=== PATIENT | male | born 1960 | race Caucasian/White ===

== ENCOUNTER → 2016-06-04 | Outpatient (CLI) | payer BC ==
--- NOTE | 2016-06-04 12:04 | XR ---
EXAMINATION TYPE: XR chest 2V DATE OF EXAM: 06/04/2016 11:34 AM COMPARISON: 04/24/16 HISTORY: Shortness of breath TECHNIQUE: Frontal and lateral views of the chest are obtained. FINDINGS: Scattered senescent parenchymal changes noted. Hyperinflation compatible with COPD. No evidence for infiltrate. No evidence for atelectasis. Heart size is stable. Mediastinal structures are stable and grossly unremarkable. No evidence for hilar prominence. Degenerative changes dorsal spine. IMPRESSION: 1. No evidence for acute pulmonary disease.
== END | disposition home or self-care (01) ==
LOC: RADXRMAIN 11:19
PROVIDERS: ATTEND Internal Medicine
DX: R05 Cough (principal); R06.2 Wheezing
CPT/HCPCS: 71020

== ENCOUNTER 2016-10-26 05:47 | Emergency (ER) | payer OTHER ==
[2016-10-26] MEDS ORDERED: KETOROLAC 30 MG/ML 1 ML VIAL IVP STA ×2 (05:55→06:43)
[2016-10-26] MEDS ORDERED: SODIUM CHLORIDE 0.9% 1,000 ML IV STA (05:55)
[2016-10-26] MEDS ORDERED: ONDANSETRON 4 MG/2 ML VIAL IVP STA (05:55)
--- NOTE | 2016-10-26 05:58 | ED ---
Abdominal Pain HPI - General Source: patient, family, RN notes reviewed Mode of arrival: wheelchair Limitations: no limitations - History of Present Illness MD Complaint: abdominal pain, flank pain <Mason Ny - Last Filed: 10/26/16 06:56> <Mason Ahumada - Last Filed: 10/26/16 09:43> - General Chief Complaint: Abdominal Pain Stated Complaint: lower abd pain Time Seen by Provider: 10/26/16 05:53 - History of Present Illness Initial Comments: This is a 56-year-old male with a prior history kidney stones associated with 2 AM this morning of severe sharp right-sided flank pain radiates down toward his penis and testicles. He's had no dysuria no hematuria. He has had diaphoresis with this nausea and vomiting. He also states she's had some bright red blood per rectum. He has no prior history of GI bleeding. No other complaints at this time (Mason Ny) - Related Data Home Medications Medication Instructions Recorded Confirmed traMADol HCL [Ultram] 1 tab PO QID PRN 10/26/16 10/26/16 Previous Rx's Medication Instructions Recorded Hydrocodone/Acetaminophen [[place] 1 - 2 each PO Q4HR PRN #30 tab 10/26/16 5-325] Ibuprofen [Motrin] 800 mg PO Q8H PRN #20 tab 10/26/16 Ondansetron [Zofran ODT] 8 mg PO Q8HR PRN #12 tab 10/26/16 Tamsulosin [Flomax] 0.4 mg PO DAILY #15 cap 10/26/16 Allergies Allergy/AdvReac Type Severity Reaction Status Date / Time No Known Allergies Allergy Verified 10/26/16 07:57 Review of Systems ROS Other: All systems not noted in ROS Statement are negative. <Mason Ny - Last Filed: 10/26/16 06:56> ROS Other: All systems not noted in ROS Statement are negative. <Mason Ahumada - Last Filed: 10/26/16 09:43> ROS Statement: Those systems with pertinent positive or pertinent negative responses have been documented in the HPI. Past Medical History Past Medical History: No Reported History Additional Past Medical History / Comment(s): Kidney stone History of Any Multi-Drug Resistant Organisms: None Reported Past Surgical History: No Surgical Hx Reported Past Psychological History: No Psychological Hx Reported Smoking Status: Never smoker Past Alcohol Use History: Rare Past Drug Use History: None Reported <Mason Ny - Last Filed: 10/26/16 06:56> General Exam Limitations: no limitations General appearance: alert, anxious, in distress Head exam: Present: atraumatic, normocephalic, normal inspection Eye exam: Present: normal appearance, PERRL, EOMI. Absent: scleral icterus, conjunctival injection, periorbital swelling ENT exam: Present: normal exam, mucous membranes moist Neck exam: Present: normal inspection. Absent: tenderness, meningismus, lymphadenopathy Respiratory exam: Present: normal lung sounds bilaterally. Absent: respiratory distress, wheezes, rales, rhonchi, stridor Cardiovascular Exam: Present: regular rate, normal rhythm, normal heart sounds. Absent: systolic murmur, diastolic murmur, rubs, gallop, clicks GI/Abdominal exam: Present: soft, normal bowel sounds. Absent: distended, tenderness, guarding, rebound, rigid Rectal exam: Present: normal inspection, normal rectal tone, heme (-) stool ( Brown stool the Hemoccult is pending no masses palpable prostate within normal limits) Extremities exam: Present: normal inspection, full ROM, normal capillary refill. Absent: tenderness, pedal edema, joint swelling, calf tenderness Back exam: Present: normal inspection, CVA tenderness (R) Neurological exam: Present: alert, oriented X3, CN II-XII intact Psychiatric exam: Present: normal affect, normal mood Skin exam: Present: warm, intact, normal color, diaphoretic. Absent: rash <Mason Ny - Last Filed: 10/26/16 06:56> <Mason Ahumada - Last Filed: 10/26/16 09:43> - General Exam Comments Initial Comments: This is a well-developed well-nourished awake alert oriented 3 male (Mason Ny) Course <Mason Ny - Last Filed: 10/26/16 06:56> <Mason Ahumada - Last Filed: 10/26/16 09:43> Vital Signs 10/26/16 10/26/16 10/26/16 05:50 06:50 07:32 Temperature 97.7 F 97.0 F L 97.4 F L Pulse Rate 55 L 61 49 L Respiratory 18 20 17 Rate Blood Pressure 149/84 156/77 159/79 O2 Sat by Pulse 97 96 98 Oximetry 10/26/16 10/26/16 08:46 09:31 Temperature 97.4 F L 97.4 F L Pulse Rate 61 55 L Respiratory 18 18 Rate Blood Pressure 144/73 124/78 O2 Sat by Pulse 97 95 Oximetry - Reevaluation(s) Reevaluation #1: 10/26/16 06:57 The patient did receive a second dose of pain medications pain did improve down to a 7 or 8/10 in severity patient's care will be endorsed to Dr. Ahumada. Patient is scheduled to have a CT abdomen . Due to the pain presentation is a suspected kidney stone noncontrast CT will be done at this time. 10/26/16 06:59 (Mason Ny) Medical Decision Making - Lab Data Result diagrams: 10/26/16 06:12 10/26/16 06:12 <Mason Ny - Last Filed: 10/26/16 06:56> - Lab Data Result diagrams: 10/26/16 06:12 10/26/16 06:12 <Mason Ahumada - Last Filed: 10/26/16 09:43> - Medical Decision Making The patient was seen and examined. All diagnostics were reviewed. Report was received from previous physician. He does relate that he has had the blood in his stools for the past 2 months. He apparently is scheduled for a colonoscopy towards the end of December. The right flank and groin pain is consistent with his previous kidney stones but he states that his symptoms are worse. He does receive additional medications of Dilaudid but states that this did not relieve his symptoms. He later receives some Reglan as well as morphine. His urine shows evidence of hematuria. His Hemoccult was positive. Remainder of labs were stable. The computed tomography scan showed a 4 mm right ureteral stone with some hydronephrosis. No other acute abnormalities are identified. He is feeling much improved on recheck. It is felt as though he is stable for discharge. He is counseled regarding his diagnoses in detail and leaves in no distress. He does appear that he has some blood in his stool which is been somewhat chronic and he is working with his primary physician for further workup. It is highly recommended that he does obtain the colonoscopy as soon as possible. Return parameters are discussed. (Mason Ahumada) - Lab Data Lab Results 10/26/16 10/26/16 10/26/16 Range/Units 06:12 06:12 06:12 WBC 7.4 (3.8-10.6) k/uL RBC 5.32 (4.30-5.90) m/uL Hgb 15.7 (13.0-17.5) gm/dL Hct 46.5 (39.0-53.0) % MCV 87.5 (80.0-100.0) fL MCH 29.5 (25.0-35.0) pg MCHC 33.8 (31.0-37.0) g/dL RDW 13.1 (11.5-15.5) % Plt Count 180 (150-450) k/uL Neutrophils % 63 % Lymphocytes % 26 % Monocytes % 5 % Eosinophils % 4 % Basophils % 1 % Neutrophils # 4.6 (1.3-7.7) k/uL Lymphocytes # 2.0 (1.0-4.8) k/uL Monocytes # 0.4 (0-1.0) k/uL Eosinophils # 0.3 (0-0.7) k/uL Basophils # 0.0 (0-0.2) k/uL PT 11.2 (9.0-12.0) sec INR 1.1 (<1.1) APTT 22.2 (22.0-30.0) sec Sodium 144 (137-145) mmol/L Potassium 3.8 (3.5-5.1) mmol/L Chloride 111 H (98-107) mmol/L Carbon Dioxide 23 (22-30) mmol/L Anion Gap 10 mmol/L BUN 17 (9-20) mg/dL Creatinine 0.94 (0.66-1.25) mg/dL Est GFR (MDRD) Af Amer >60 (>60 ml/min/1.73 sqM) Est GFR (MDRD) Non-Af >60 (>60 ml/min/1.73 sqM) Glucose 155 H (74-99) mg/dL Calcium 10.6 H (8.4-10.2) mg/dL Total Bilirubin 0.9 (0.2-1.3) mg/dL AST 29 (17-59) U/L ALT 45 (21-72) U/L Alkaline Phosphatase 74 (38-126) U/L Total Protein 6.9 (6.3-8.2) g/dL Albumin 4.2 (3.5-5.0) g/dL Amylase 81 (30-110) U/L Lipase 72 (23-300) U/L Urine Color Urine Appearance (Clear) Urine pH (5.0-8.0) Ur Specific [place] (1.001-1.035) Urine Protein (Negative) Urine Glucose (UA) (Negative) Urine Ketones (Negative) Urine Blood (Negative) Urine Nitrite (Negative) Urine Bilirubin (Negative) Urine Urobilinogen (<2.0) mg/dL Ur Leukocyte Esterase (Negative) Urine RBC (0-5) /hpf Urine WBC (0-5) /hpf Urine Mucus (None) /hpf Stool Occult Blood (Negative) 10/26/16 10/26/16 Range/Units 06:40 06:53 WBC (3.8-10.6) k/uL RBC (4.30-5.90) m/uL Hgb (13.0-17.5) gm/dL Hct (39.0-53.0) % MCV (80.0-100.0) fL MCH (25.0-35.0) pg MCHC (31.0-37.0) g/dL RDW (11.5-15.5) % Plt Count (150-450) k/uL Neutrophils % % Lymphocytes % % Monocytes % % Eosinophils % % Basophils % % Neutrophils # (1.3-7.7) k/uL Lymphocytes # (1.0-4.8) k/uL Monocytes # (0-1.0) k/uL Eosinophils # (0-0.7) k/uL Basophils # (0-0.2) k/uL PT (9.0-12.0) sec INR (<1.1) APTT (22.0-30.0) sec Sodium (137-145) mmol/L Potassium (3.5-5.1) mmol/L Chloride (98-107) mmol/L Carbon Dioxide (22-30) mmol/L Anion Gap mmol/L BUN (9-20) mg/dL Creatinine (0.66-1.25) mg/dL Est GFR (MDRD) Af Amer (>60 ml/min/1.73 sqM) Est GFR (MDRD) Non-Af (>60 ml/min/1.73 sqM) Glucose (74-99) mg/dL Calcium (8.4-10.2) mg/dL Total Bilirubin (0.2-1.3) mg/dL AST (17-59) U/L ALT (21-72) U/L Alkaline Phosphatase (38-126) U/L Total Protein (6.3-8.2) g/dL Albumin (3.5-5.0) g/dL Amylase (30-110) U/L Lipase (23-300) U/L Urine Color Yellow Urine Appearance Clear (Clear) Urine pH 5.5 (5.0-8.0) Ur Specific [place] 1.018 (1.001-1.035) Urine Protein 1+ H (Negative) Urine Glucose (UA) Negative (Negative) Urine Ketones Negative (Negative) Urine Blood Moderate H (Negative) Urine Nitrite Negative (Negative) Urine Bilirubin Negative (Negative) Urine Urobilinogen <2.0 (<2.0) mg/dL Ur Leukocyte Esterase Negative (Negative) Urine RBC 42 H (0-5) /hpf Urine WBC 4 (0-5) /hpf Urine Mucus Rare H (None) /hpf Stool Occult Blood Positive (Negative) Disposition <Mason Ny - Last Filed: 10/26/16 06:56> Time of Disposition: 09:39 <Mason Ahumada - Last Filed: 10/26/16 09:43> Clinical Impression: Right flank pain, Nausea and vomiting, Hypertension, Hematuria, Rectal bleeding , Right ureteral stone, Hydronephrosis of right kidney Disposition: HOME SELF-CARE Condition: Good Instructions: Hypertension (ED), Kidney Stones (ED), Rectal Bleeding (ED) Additional Instructions: Please stop your home Ultram while taking the [place]. Prescriptions: Hydrocodone/Acetaminophen [[place] 5-325] 1 - 2 each PO Q4HR PRN #30 tab PRN Reason: Pain Ibuprofen [Motrin] 800 mg PO Q8H PRN #20 tab PRN Reason: Pain Ondansetron [Zofran ODT] 8 mg PO Q8HR PRN #12 tab PRN Reason: Nausea Tamsulosin [Flomax] 0.4 mg PO DAILY #15 cap Referrals: Reese Gordon MD [Primary Care Provider] - 1-2 days Gio Martinez MD [STAFF PHYSICIAN] - 10/30/16
[2016-10-26 06:37] LABS: Basophils % (A) 1 %; CH 30.5; CHCM 35.1; Eosinophils # (A) 0.3 k/uL (0-0.7); Eosinophils % (A) 4 %; HCT 46.5 % (39.0-53.0); HDW 2.84; HGB 15.7 gm/dL (13.0-17.5); Luc # (Auto) 0.17; Luc % (Auto) 2; Lymphocytes % (A) 26 %; MCH 29.5 pg (25.0-35.0); MCHC 33.8 g/dL (31.0-37.0); MCV 87.5 fL (80.0-100.0); Mean Platelet Volume 6.8; Monocytes # (A) 0.4 k/uL (0-1.0); Monocytes % (A) 5 %; Neutrophils # (A) 4.6 k/uL (1.3-7.7); Neutrophils % (A) 63 %; RBC 5.32 m/uL (4.30-5.90); RDW 13.1 % (11.5-15.5); WBC 7.4 k/uL (3.8-10.6); WBC (Perox) 6.86
[2016-10-26 06:46] LABS: INR 1.1 (<1.1); Partial Thromboplastin Time 22.2 sec (22.0-30.0); Prothrombin Time 11.2 sec (9.0-12.0)
[2016-10-26 06:47] LABS: ALT 45 U/L (21-72); AST 29 U/L (17-59); Alkaline Phosphatase 74 U/L (38-126); Amylase 81 U/L (30-110); Anion Gap 10 mmol/L; Blood Urea Nitrogen 17 mg/dL (9-20); Calcium 10.6 mg/dL (8.4-10.2); Carbon Dioxide 23 mmol/L (22-30); Chloride 111 mmol/L (98-107); Glucose 155 mg/dL (74-99); Non-African American GFR(MDRD) >60 (>60 ml/min/1.73 sqM); Potassium 3.8 mmol/L (3.5-5.1); Sodium 144 mmol/L (137-145); Total Bilirubin 0.9 mg/dL (0.2-1.3); Total Protein 6.9 g/dL (6.3-8.2)
[2016-10-26 06:59] LABS: Appearance,Urine Clear (Clear); Bilirubin,Urine Negative (Negative); Glucose,Urine (UA) Negative (Negative); Ketones,Urine Negative (Negative); Leukocyte Esterase,Urine Negative (Negative); Mucus,Urine Rare /hpf; Nitrite,Urine Negative (Negative); PH, Urine 5.5 (5.0-8.0); Particle Count 3546; Protein,Urine 1+ (Negative); RBC,Urine 42 /hpf (0-5); Specific Gravity,Urine 1.018 (1.001-1.035); UA Billing (MACRO vs. MICRO) MICRO; Urobilinogen,Urine <2.0 mg/dL (<2.0); WBC,Urine 4 /hpf (0-5)
[2016-10-26] MEDS ORDERED: HYDROmorphone 1 MG/ML 1 ML SYRINGE IVP STA (07:36)
--- NOTE | 2016-10-26 07:55 | XR ---
EXAM: XR Abdomen, 2 View CLINICAL HISTORY: Reason: abdominal pain TECHNIQUE: Frontal upright view of the abdomen/pelvis. COMPARISON: 10/08/15 FINDINGS: Intraperitoneal space: No free air. Gastrointestinal tract: Overall paucity of small bowel gas. No focal small bowel dilatation. Organs: Stable calcification in the left pelvis likely phlebolith. Bones/joints: Mild degenerative changes in the lower lumbar spine. Tubes, lines and devices: Overlying chest leads obscure a portion of the upper abdomen. IMPRESSION: 1. Nonspecific bowel gas pattern. 2. No free air.
[2016-10-26] MEDS ORDERED: METOCLOPRAMIDE 5 MG/ML 2 ML VIAL IVP STA (08:22)
[2016-10-26] MEDS ORDERED: MORPHINE SULFATE 4 MG/ML SYRINGE IV STA (08:22)
[2016-10-26 08:47] VITALS: RESP 18
--- NOTE | 2016-10-26 09:29 | CT ---
EXAMINATION TYPE: CT abdomen pelvis wo con DATE OF EXAM: 10/26/2016 COMPARISON: October 14, 2015. HISTORY: RLQ abdominal pain, bloody bowel movement. CT DLP: 864.70 mGycm Automated exposure control for dose reduction was used. TECHNIQUE: Helical acquisition of images was performed from the lung bases through the pelvis. Witho ut the use of contrast. FINDINGS: LUNG BASES: No significant abnormality is appreciated. Lack of intravenous contrast limits evaluation of abdominal and pelvic organs. LIVER/GB: No significant abnormality is appreciated. PANCREAS: No significant abnormality is seen. SPLEEN: No significant abnormality is seen. ADRENALS: No significant abnormality is seen. KIDNEYS: The left kidney is unchanged. A dromedary hump is again noted. The right kidney demonstrates [id number] hydronephrosis. There is nonspecific. Renal infiltrati on of the fat. In the proximal ureter there is a 4 mm calculus which causes obstruction. Small hiatal hernia is noted. Diastases rectus is noted. FREE AIR: No free air is visualized RETROPERITONEAL ADENOPATHY: None visualized REPRODUCTIVE ORGANS: Prostatic calcifications are again noted. There appear to be bilateral fat fille d inguinal hernias. URINARY BLADDER: No significant abnormality is seen. PELVIC ADENOPATHY: None visualized. OSSEOUS STRUCTURES: Are unchanged. BOWEL: Mild diverticulosis is again noted. No findings are identified which would suggest acute dive rticulitis. IMPRESSION: 4 MM OBSTRUCTING CALCULUS IN THE PROXIMAL RIGHT URETER WHICH CAUSES MILD TO MODERATE HYDRONEPHROSIS.
[2016-10-26 10:05] VITALS: BP 129/82; PULSE 58; TEMP 97
== END 2016-10-26 10:05 | disposition home or self-care (01) ==
LOC: EC 05:47
DX: N13.2 Hydronephrosis with renal and ureteral calculous obstruction (principal); R11.2 Nausea with vomiting, unspecified; K62.5 Hemorrhage of anus and rectum; I10 Essential (primary) hypertension
CPT/HCPCS: 99285; 96374; 96375 ×4; 96376; 96361; 36415; 80053; 82150; 83690; 85025; 85610; 85730; 82272; 81001; 74000; 74176; J2270; J2765; J2405; J1885; J1170

== ENCOUNTER → 2017-06-05 | Outpatient (CLI) | payer OTHER ==
--- NOTE | 2017-06-05 15:45 | US ---
EXAMINATION TYPE: US thyroid st tissue head/neck DATE OF EXAM: 06/05/2017 COMPARISON: NONE CLINICAL HISTORY: E21.3 Hyperparathyroidism. High calcium levels GLAND SIZE: Right Lobe: 3.7 x 1.5 x 1.7 cm Overall Parenchyma: homogenous Left Lobe: 3.9 x 1.2 x 1.3 cm Overall Parenchyma: homogeneous Isthmus Thickness: 0.2 cm NODULES RIGHT: # of nodules measured on right: 0 LEFT: # of nodules measured on left: 0 ISTHMUS: # of nodules measured in the isthmus: 0 0 Bilateral neck scanned showed enlarged nodes. Largest on the right = 1.9cm, largest two on the left = 2.2 and 2.0cm Hypoechoic, vascular area seen inferior to right thyroid gland, probable parathyroid = 1.2cm, no visi ble parathyroid tissue seen on the left. Thyroid gland is somewhat small in size but fairly homogeneous in appearance. There are suspicious no dule along the inferior posterior aspect of right thyroid difficult to determine if within normal adj acent to thyroid causing mass effect on images saved. Technologist scott several elongated lymph node s bilaterally all measuring subcentimeter in short axis in the middle of the study. IMPRESSION: Possible right-sided parathyroid adenoma. Advise nuclear medicine parathyroid correlation.
== END | disposition home or self-care (01) ==
LOC: RADUSMAIN 10:37
PROVIDERS: ATTEND Surgery
DX: E21.3 Hyperparathyroidism, unspecified (principal)
CPT/HCPCS: 36415; 76536; 82306

== ENCOUNTER → 2017-06-10 | Outpatient (CLI) | payer OTHER ==
--- NOTE | 2017-06-10 16:57 | NM ---
EXAMINATION TYPE: NM parathyroid w/spect DATE OF EXAM: 06/10/2017 COMPARISON: Ultrasound 06/05/2017 HISTORY: Hyperparathyroidism TECHNIQUE: Following administration of 25.1 mCi Tc99m Sestamibi. Anterior projection images of the neck and ches t were obtained 10 minutes and 3 hours post injection. SPECT images of the neck and chest were obtai gayatri and reconstructed in three axes. FINDINGS: Thyroid tracer washout: Delayed images demonstrate near-complete tracer washout from the thyroid. Parathyroid uptake: On the delayed images there is focal increased radiotracer accumulation overlying the lower pole of the right thyroid lobe felt to reflect parathyroid adenoma. Normal uptake: There is physiological tracer uptake in the myocardium, liver, salivary glands, and th yroid gland. IMPRESSION: 1. Findings felt to reflect parathyroid adenoma overlying the lower pole of the right thyroid lobe.
== END | disposition home or self-care (01) ==
LOC: RADNMMAIN 11:46
PROVIDERS: ATTEND Surgery
DX: E21.3 Hyperparathyroidism, unspecified (principal)
CPT/HCPCS: 78071; A9500

== ENCOUNTER 2017-07-10 10:19 | Day surgery (SDC) | payer OTHER ==
[2017-07-08 11:11] VITALS: BMI 31.4
[~2017-07-10 10:19] MED LIST: LACTATED RINGERS 1,000 ML IV SCH
[2017-07-10 10:56] VITALS: TEMP 97.6
[2017-07-10] MEDS ORDERED: LIDOCAINE 1% INJ 10MG/ML (20 ML MDV) ONE (11:06)
[2017-07-10] MEDS ORDERED: PROPOFOL 10 MG/ML 20 ML VIAL IV ONE (11:06)
--- NOTE | 2017-07-10 11:30 | P.PCN ---
Date of Procedure: 07/10/17 Procedure(s) Performed: PREOPERATIVE DIAGNOSIS: colon polyps, GERD POSTOPERATIVE DIAGNOSIS: gastritis, moderate sized hiatal hernia, diverticulosis PROCEDURE: 1. EGD with biopsy 2. Colonoscopy ANESTHESIA: MAC SURGEON: Wm Pabon M.D. SPECIMENS: antrum, body of stomach ENDOSCOPIC PROCEDURE: The patient was on the endoscopy table in the left decubitus position. The Olympus gastroscope was inserted into the oropharynx and passed under direct visualization to the region of the third portion of the duodenum. From that point the scope was slowly withdrawn inspecting all surfaces carefully. There were no neoplastic inflammatory or polypoid lesions throughout the duodenum. The pylorus was widely patent. The stomach was carefully inspected. There was gastritis present diffusely.. A biopsy of the antrum took place to rule out H. pylori. a biopsy of the body of the stomach also took place. Retroflexion revealed a moderate sized hiatal hernia. The GE junction was present at 39 cm while the diaphragmatic hiatus was present at 44 cm. The esophagus was examined and appeared normal. The patient was kept on the endoscopy table in the left decubitus position. The Olympus colonoscope was inserted into the anus and passed under direct visualization to the base of the cecum. The appendiceal orifice was visualized. From that point the scope was slowly withdrawn inspecting all surfaces carefully. There were no neoplastic inflammatory or polypoid lesions throughout the cecum, ascending, transverse, descending, sigmoid and rectum. There was mild sigmoid diverticulosis noted. Digital rectal examination was normal. The patient was taken to the recovery room in stable condition per anesthesia guidelines. RECOMMENDATIONS: await biopsy results. Continue high-fiber diet. Consider follow-up colonoscopy 5 years given the patient's personal history of colon polyps.
[2017-07-10 11:58] VITALS: BP 127/83; PULSE 78; RESP 18
== END 2017-07-10 12:10 | disposition home or self-care (01) ==
LOC: ORWHC2ENDO 10:19
PROVIDERS: ATTEND Surgery
DX: K29.50 Unspecified chronic gastritis without bleeding (principal); K44.9 Diaphragmatic hernia without obstruction or gangrene; K57.30 Diverticulosis of large intestine without perforation or abscess without bleeding; K21.9 Gastro-esophageal reflux disease without esophagitis; Z87.19 Personal history of other diseases of the digestive system; Z86.010 Personal history of colon polyps; E21.3 Hyperparathyroidism, unspecified; Z79.1 Long term (current) use of non-steroidal anti-inflammatories (NSAID); Z79.891 Long term (current) use of opiate analgesic; Z79.899 Other long term (current) drug therapy
CPT/HCPCS: 88305; 45378; 43239; J2001; J2704

== ENCOUNTER → 2017-10-04 | Outpatient (CLI) | payer OTHER ==
--- NOTE | 2017-10-04 19:50 | MR ---
EXAMINATION TYPE: MR shoulder RT wo con DATE OF EXAM: 10/04/2017 COMPARISON: NONE HISTORY: Rt shoulder pain for 2 months per patient. Rotator cuff tear per order. TECHNIQUE: Multiplanar, multisequence imaging of the right shoulder is performed without contrast. FINDINGS: Rotator Cuff: Supraspinatus and infraspinatus tendons are both intact to humeral head attachment. Hans e fluid signal subdeltoid/subacromial bursa is present with mild fraying along the bursal surface. Ro tator cuff muscle bulk is preserved. Subscapularis tendon is intact. Acromioclavicular Joint: AC joint shows some narrowing with capsular hypertrophy superiorly. Underlyi ng fat plane is maintained. Distal acromion morphology shows tiny lateral spur paracoronal image 14. No significant inferior spurring is seen. Glenohumeral Joint: There is joint space loss most prominent mid glenoid level with small to moderate glenohumeral joint effusion. No significant spurring is seen. Labrum: The labrum appears grossly intact given limitation of non-arthrogram study. Biceps Tendon: The long head of biceps is in normal location within bicipital groove. Slightly more p rominent fluid signal surrounds long head of biceps tendon. Bone marrow signal: No focal abnormal marrow signal is appreciated. Other: No additional significant abnormality is appreciated. IMPRESSION: 1. Moderate subdeltoid/subacromial bursitis with bursal tendinosis/tendinopathy. No full-thickness ro tator cuff tear. No labral tear is seen. 2. Mild bicipital tenosynovitis.
== END ==
LOC: RADMRIMAIN 18:42
PROVIDERS: ATTEND Orthopaedic Surgery
DX: M75.51 Bursitis of right shoulder (principal); M75.21 Bicipital tendinitis, right shoulder

== ENCOUNTER → 2022-03-09 | Outpatient (CLI) | payer BC ==
--- NOTE | 2022-03-09 10:25 | CA ---
Stress Echo Report Tereso Alvarez Age: 61 Gender: M : 1960 Exam Date: 03/09/2022 09:22 Exam Location: [facility] Ht (in): 71 Wt (lb): 225 Ordering Physician: Clay Landin MD Referring Physician: Mushtaq HOLT Shingle Catcher: BLAYNE Technologist Procedure CPT: Indication: R07.9 CHEST PAIN ICD-9 Codes: Rhythm: Patient History: CHEST PAIN, NUMBNESS IN ARM Cardiac Medications: IBUPROFEN,,,,, Medications in past 24 hours: Contrast: Stress Results Protocol: Stevenson Total dose(mL): Exercise Duration (min:sec): Max ST Depression (mm): Angina Score: Lara Score: METS: 12.1 Resting HR: 74 Resting BP: 136 / 92 Peak HR: 148 Peak BP: 219 / 57 Max Predicted HR: 160 93 % Max Predicted HR Target HR: 136 Double Product: [id number] Stress Summary: BP Response: Reason for Termination: MAX EXERTION/TARGET HR Cardiac Symptoms: NO SYMPTOMS ECG Analysis Resting ECG: Normal sinus rhythm normal axis normal intervals Stress ECG: Excellent exercise tolerance No ST segment depression Arrhythmia: Echo Analysis Resting Echo: Normal left ventricular size wall motion systolic function Peak Echo Analysis: Normal hyperdynamic response of all segments of myocardium noted MEASUREMENTS (Male/Female) Normal Values CONCLUSIONS Excellent exercise tolerance Negative stress test by EKG criteria Negative stress echo Dr. Thaddeus Cat MD (Electronically Signed) Final Date: 09 March 2022 10:24
== END | disposition home or self-care (01) ==
LOC: RADNMMAIN 09:01
PROVIDERS: ATTEND Family Medicine
DX: R07.9 Chest pain, unspecified (principal)
CPT/HCPCS: 93351

== ENCOUNTER 2023-11-18 18:40 | Emergency (ER) | payer BC ==
[2023-11-18 19:12] VITALS: TEMP 98.5
--- NOTE | 2023-11-18 19:13 | ED ---
General Adult HPI - General Chief complaint: Shortness of Breath Stated complaint: PEE, throat pain Time Seen by Provider: 11/18/23 19:12 Source: patient, family Mode of arrival: ambulatory Limitations: no limitations - History of Present Illness Initial comments: 63-year-old male presenting with chief complaint of difficulty swallowing. Patient states that this started last night while eating turkey. He states that he feels food gets stuck in his chest. When he tries to drink it immediately regurgitates. Denies any difficulty breathing. Has had a previous upper and lower GI scope with Dr. Pabon. - Related Data Home Medications Medication Instructions Recorded Confirmed Acetaminophen Tab [Tylenol Tab] 650 mg PO Q4H PRN 07/08/17 07/10/17 Allergies Allergy/AdvReac Type Severity Reaction Status Date / Time No Known Allergies Allergy Verified 01/29/22 13:33 Review of Systems ROS Statement: Those systems with pertinent positive or pertinent negative responses have been documented in the HPI. ROS Other: All systems not noted in ROS Statement are negative. Past Medical History Past Medical History: No Reported History Additional Past Medical History / Comment(s): Kidney stone History of Any Multi-Drug Resistant Organisms: None Reported Past Surgical History: No Surgical Hx Reported Additional Past Surgical History / Comment(s): parathyroid removal Past Anesthesia/Blood Transfusion Reactions: No Reported Reaction Past Psychological History: No Psychological Hx Reported Past Alcohol Use History: Rare Past Drug Use History: None Reported - Past Family History Mother Family Medical History: Cancer Brother(s) Family Medical History: Cancer Additional Family Medical History / Comment(s): MELENOMA General Exam - General Exam Comments Initial Comments: Visual Physical Exam Vital signs reviewed General: Well-appearing, nontoxic, no acute distress. Head: Normocephalic, atraumatic Eyes: PERRLA, EOMI ENT: Airway patent Chest: Nonlabored breathing Skin: No visual rash, normal skin tone Neuro: Alert and oriented 3 Musculoskeletal: No gross abnormalities Limitations: no limitations General appearance: alert, in no apparent distress Head exam: Present: atraumatic, normocephalic Eye exam: Present: normal appearance, EOMI Neck exam: Present: normal inspection. Absent: meningismus Respiratory exam: Absent: respiratory distress Cardiovascular Exam: Present: regular rate Neurological exam: Present: alert, oriented X3 Psychiatric exam: Present: normal affect, normal mood Skin exam: Present: warm, dry Course Vital Signs 11/18/23 11/18/23 11/19/23 19:07 23:29 00:48 Temperature 98.5 F Pulse Rate 65 53 L 57 L Respiratory 65 H 18 18 Rate Blood Pressure 110/65 138/98 137/89 O2 Sat by Pulse 98 97 97 Oximetry Medical Decision Making - Medical Decision Making I performed the quick note portion of this visit, electronically signed Israel Goins PA-C Was pt. sent in by a medical professional or institution (NURA Taylor, PRODUCT MARKETING ANALYST, urgent care, hospital, or skilled nursing...) When possible be specific @ -No Did you speak to anyone other than the patient for history (EMS, parent, family, police, friend...)? What history was obtained from this source @ -No Did you review nursing and triage notes (agree or disagree)? Why? @ -I reviewed and agree with nursing and triage notes Were old charts reviewed (outside hosp., previous admission, EMS record, old EKG, old radiological studies, urgent care reports/EKG's, skilled nursing records)? Report findings @ -No old charts were reviewed Differential Diagnosis (chest pain, altered mental status, abdominal pain women, abdominal pain men, vaginal bleeding, weakness, fever, dyspnea, syncope, headache, dizziness, GI bleed, back pain, seizure, CVA, palpatations, mental health, musculoskeletal)? @ -Differential includes esophageal foreign body, esophageal stricture, ACS, this is not an all-inclusive list EKG interpreted by me (3pts min.). @ -EKG shows sinus rhythm with frequent ventricular premature complexes. Ventricular rate 68. VT interval 140. QRS 104. QT 388. QTc 405. X-rays interpreted by me (1pt min.). @ -X-ray shows some central peribronchial cuffing may be seen with bronchitis or asthma. Otherwise no acute process seen CT interpreted by me (1pt min.). @ -None done U/S interpreted by me (1pt. min.). @ -None done What testing was considered but not performed or refused? (CT, X-rays, U/S, labs)? Why? @ -None What meds were considered but not given or refused? Why? @ -None Did you discuss the management of the patient with other professionals (professionals i.e. , NURA, PRODUCT MARKETING ANALYST, lab, RT, psych nurse, director social, queen producer, teacher, security control room officer, rn case management)? Give summary @ -No Was smoking cessation discussed for >3mins.? @ -No Was critical care preformed (if so, how long)? @ -No Were there social determinants of health that impacted care today? How? (Homelessness, low income, unemployed, alcoholism, drug addiction, transportation, low edu. Level, literacy, decrease access to med. care, long term, rehab)? @ -No Was there de-escalation of care discussed even if they declined (Discuss DNR or withdrawal of care, Hospice)? DNR status @ -No What co-morbidities impacted this encounter? (DM, HTN, Smoking, COPD, CAD, Cancer, CVA, ARF, Chemo, Hep., AIDS, mental health diagnosis, sleep apnea, morbid obesity)? @ -None Was patient admitted / discharged? Hospital course, mention meds given and route, prescriptions, significant lab abnormalities, going to OR and other pertinent info. @ -63-year-old male presenting with chief complaint of food stuck in his throat since last night. Workup was initiated by triage. Lab work requires no action. Chest x-ray shows no acute process. EKG shows sinus rhythm. Patient is later brought back to a room he is given glucagon and Valium as well as yelena natty. He is instructed to jump up and down. After combination of these methods he feels the food dislodged. He is able to drink without difficulty and feels 100% better. He will follow-up with his PCP at scheduled appointment tomorrow. Discharged home. Follow-up with PCP. Report back to ER with any new or worsening symptoms. Discussed return parameters and answered all questions. Nura coronado conveyed verbal understanding and agreed to the plan. I discussed this case in detail with my attending Dr. Muir Undiagnosed new problem with uncertain prognosis? @ -No Drug Therapy requiring intensive monitoring for toxicity (Heparin, Nitro, Insulin, Cardizem)? @ -No Were any procedures done? @ -No Diagnosis/symptom? @ -Esophageal foreign body Acute, or Chronic, or Acute on Chronic? @ -Acute Uncomplicated (without systemic symptoms) or Complicated (systemic symptoms)? @ -Uncomplicated Side effects of treatment? @ -No Exacerbation, Progression, or Severe Exacerbation? @ -No Poses a threat to life or bodily function? How? (Chest pain, [place], [place], pneumonia, PE, COPD, DKA, ARF, appy, cholecystitis, CVA, Diverticulitis, Homicidal, Suicidal, threat to staff... and all critical care pts) @ -Unlikely at this time - Lab Data Result diagrams: 11/18/23 19:18 11/18/23 19:18 Lab Results 11/18/23 11/18/23 11/18/23 Range/Units 19:18 19:18 19:18 WBC 8.0 (3.8-10.6) k/uL RBC 5.06 (4.30-5.90) m/uL Hgb 15.0 (13.0-17.5) gm/dL Hct 45.4 (39.0-53.0) % MCV 89.6 (80.0-100.0) fL MCH 29.7 (25.0-35.0) pg MCHC 33.1 (31.0-37.0) g/dL RDW 13.0 (11.5-15.5) % Plt Count 178 (150-450) k/uL MPV 8.2 Neutrophils % 60 % Lymphocytes % 28 % Monocytes % 6 % Eosinophils % 3 % Basophils % 1 % Neutrophils # 4.9 (1.3-7.7) k/uL Lymphocytes # 2.2 (1.0-4.8) k/uL Monocytes # 0.5 (0-1.0) k/uL Eosinophils # 0.2 (0-0.7) k/uL Basophils # 0.1 (0-0.2) k/uL PT 11.5 (10.0-12.5) sec INR 1.1 (<1.2) APTT 24.6 (22.0-30.0) sec Sodium 144 (137-145) mmol/L Potassium 3.8 (3.5-5.1) mmol/L Chloride 114 H (98-107) mmol/L Carbon Dioxide 23 (22-30) mmol/L Anion Gap 7 mmol/L BUN 21 H (9-20) mg/dL Creatinine 0.79 (0.66-1.25) mg/dL Est GFR (CKD-EPI)AfAm >90 (>60 ml/min/1.73 sqM) Est GFR (CKD-EPI)NonAf >90 (>60 ml/min/1.73 sqM) Glucose 96 (74-99) mg/dL Calcium 9.3 (8.4-10.2) mg/dL Total Bilirubin 1.2 (0.2-1.3) mg/dL AST 30 (17-59) U/L ALT 24 (4-49) U/L Alkaline Phosphatase 59 (38-126) U/L Troponin I (0.000-0.034) ng/mL Total Protein 6.8 (6.3-8.2) g/dL Albumin 4.3 (3.5-5.0) g/dL 11/18/23 Range/Units 19:18 WBC (3.8-10.6) k/uL RBC (4.30-5.90) m/uL Hgb (13.0-17.5) gm/dL Hct (39.0-53.0) % MCV (80.0-100.0) fL MCH (25.0-35.0) pg MCHC (31.0-37.0) g/dL RDW (11.5-15.5) % Plt Count (150-450) k/uL MPV Neutrophils % % Lymphocytes % % Monocytes % % Eosinophils % % Basophils % % Neutrophils # (1.3-7.7) k/uL Lymphocytes # (1.0-4.8) k/uL Monocytes # (0-1.0) k/uL Eosinophils # (0-0.7) k/uL Basophils # (0-0.2) k/uL PT (10.0-12.5) sec INR (<1.2) APTT (22.0-30.0) sec Sodium (137-145) mmol/L Potassium (3.5-5.1) mmol/L Chloride (98-107) mmol/L Carbon Dioxide (22-30) mmol/L Anion Gap mmol/L BUN (9-20) mg/dL Creatinine (0.66-1.25) mg/dL Est GFR (CKD-EPI)AfAm (>60 ml/min/1.73 sqM) Est GFR (CKD-EPI)NonAf (>60 ml/min/1.73 sqM) Glucose (74-99) mg/dL Calcium (8.4-10.2) mg/dL Total Bilirubin (0.2-1.3) mg/dL AST (17-59) U/L ALT (4-49) U/L Alkaline Phosphatase (38-126) U/L Troponin I <0.012 (0.000-0.034) ng/mL Total Protein (6.3-8.2) g/dL Albumin (3.5-5.0) g/dL Disposition Clinical Impression: Esophageal foreign body Disposition: HOME SELF-CARE Condition: Good Instructions (If sedation given, give patient instructions): Food Impaction (ED) Additional Instructions: Follow-up with your PCP. Report back to ER with any new or worsening symptoms. Is patient prescribed a controlled substance at d/c from ED?: No Referrals: Clay Landin MD [Primary Care Provider] - 1-2 days Time of Disposition: 00:19
[2023-11-18 19:35] LABS: Basophils # (A) 0.1 k/uL (0-0.2); Basophils % (A) 1 %; Eosinophils # (A) 0.2 k/uL (0-0.7); Eosinophils % (A) 3 %; HCT 45.4 % (39.0-53.0); Lymphocytes # (A) 2.2 k/uL (1.0-4.8); Lymphocytes % (A) 28 %; MCH 29.7 pg (25.0-35.0); MCHC 33.1 g/dL (31.0-37.0); MCV 89.6 fL (80.0-100.0); Mean Platelet Volume 8.2; Monocytes # (A) 0.5 k/uL (0-1.0); Monocytes % (A) 6 %; Neutrophils # (A) 4.9 k/uL (1.3-7.7); Neutrophils % (A) 60 %; Platelet Count 178 k/uL (150-450); RBC 5.06 m/uL (4.30-5.90)
[2023-11-18 19:46] LABS: INR 1.1 (<1.2); Partial Thromboplastin Time 24.6 sec (22.0-30.0); Prothrombin Time 11.5 sec (10.0-12.5)
[2023-11-18 19:47] LABS: ALT 24 U/L (4-49); AST 30 U/L (17-59); African American GFR (CKD) >90 (>60 ml/min/1.73 sqM); Albumin 4.3 g/dL (3.5-5.0); Alkaline Phosphatase 59 U/L (38-126); Anion Gap 7 mmol/L; Blood Urea Nitrogen 21 mg/dL (9-20); Calcium 9.3 mg/dL (8.4-10.2); Carbon Dioxide 23 mmol/L (22-30); Chloride 114 mmol/L (98-107); Glucose 96 mg/dL (74-99); Non-African American GFR(CKD) >90 (>60 ml/min/1.73 sqM); Potassium 3.8 mmol/L (3.5-5.1); Sodium 144 mmol/L (137-145); Total Bilirubin 1.2 mg/dL (0.2-1.3); Total Protein 6.8 g/dL (6.3-8.2)
--- NOTE | 2023-11-18 20:33 | XR ---
EXAMINATION TYPE: XR chest 2V DATE OF EXAM: 11/18/2023 COMPARISON: 06/04/2016 HISTORY: 63 year-old male shortness of breath, difficulty breathing TECHNIQUE: PA and lateral views FINDINGS: Heart normal size. Aorta and pulmonary vasculature within normal limits. Mild central peribronchial c uffing noted without consolidation or effusion. IMPRESSION: Some central peribronchial cuffing may be seen with bronchitis or asthma. Otherwise, no acute process seen.
[2023-11-18 23:30] VITALS: RESP 18
[2023-11-18] MEDS: GLUCAGON 1 MG/ML VIAL IM STA (23:38)
[2023-11-18] MEDS: GLUCAGON 1 MG/ML VIAL IVP STA (23:44)
[2023-11-19 00:49] VITALS: BP 137/89; PULSE 57
== END 2023-11-19 00:48 | disposition home or self-care (01) ==
LOC: EC 18:40
DX: T18.108A Unspecified foreign body in esophagus causing other injury, initial encounter (principal)
CPT/HCPCS: 36415; 93005; 80053; 84484; 85025; 85610; 85730; 71046; 99285; 96374; 96375; J1610; J3360

== ENCOUNTER 2024-02-11 07:31 | Day surgery (SDC) | payer BC ==
[2024-02-11 08:01] VITALS: TEMP 97.4
[2024-02-11] MEDS: IV FLUID CONTINUATION 1,000 ML IV ONE (08:10)
[2024-02-11] MEDS: LACTATED RINGERS 1,000 ML IV SCH (08:12)
[2024-02-11] MEDS ORDERED: PROPOFOL 10 MG/ML 20 ML VIAL IV ONE (08:43)
[2024-02-11] MEDS ORDERED: LIDOCAINE 2% (PF) 20 MG/ML 5 ML VIAL ONE (08:43)
--- NOTE | 2024-02-11 08:45 | P.GSHP ---
History of Present Illness H&P Date: 02/11/24 Chief Complaint: GERD, dysphagia, screening with history of colon polyps 63-year-old male here for upper and lower endoscopy. Last upper and lower was 6 years ago. Patient known to have a hiatal hernia, diverticulosis and history of colon polyps. Last colonoscopy was normal for polyps. No family history of colon cancer. Past Medical History Past Medical History: GERD/Reflux Additional Past Medical History / Comment(s): Kidney stone History of Any Multi-Drug Resistant Organisms: None Reported Past Surgical History: No Surgical Hx Reported Additional Past Surgical History / Comment(s): parathyroid removal Past Anesthesia/Blood Transfusion Reactions: No Reported Reaction Smoking Status: Never smoker - Past Family History Mother Family Medical History: Cancer Brother(s) Family Medical History: Cancer Additional Family Medical History / Comment(s): MELENOMA Medications and Allergies Home Medications Medication Instructions Recorded Confirmed Type Acetaminophen Tab [Tylenol Tab] 650 mg PO Q4H PRN 07/08/17 02/11/24 History Ibuprofen [Motrin] 400 mg PO Q8HR PRN 02/06/24 02/11/24 History Pantoprazole Sodium 40 mg PO DIRECTED 02/06/24 02/11/24 History Allergies Allergy/AdvReac Type Severity Reaction Status Date / Time No Known Allergies Allergy Verified 02/11/24 07:52 Surgical - Exam Vital Signs Temp Pulse Resp BP Pulse Ox 97.4 F L 57 L 18 142/90 97 02/11/24 07:59 02/11/24 07:59 02/11/24 07:59 02/11/24 07:59 02/11/24 07:59 Physical exam: General: Well-developed, well-nourished HEENT: Normocephalic, sclerae nonicteric Abdomen: Nontender, nondistended Extremities: No edema Neuro: Alert and oriented Assessment and Plan (1) Colon cancer screening Narrative/Plan: Will proceed with upper and lower endoscopy with possible dilation. Current Visit: Yes Status: Acute Code(s): Z12.11 - ENCOUNTER FOR SCREENING FOR MALIGNANT NEOPLASM OF COLON SNOMED Code(s): 210322763
--- NOTE | 2024-02-11 09:04 | P.PCN ---
Date of Procedure: 02/11/24 Procedure(s) Performed: PREOPERATIVE DIAGNOSIS: GERD, dysphagia, screening with history of polyps POSTOPERATIVE DIAGNOSIS: Gastritis, hiatal hernia, distal esophagitis, diverticulosis PROCEDURE: 1. EGD with biopsy 2. Colonoscopy ANESTHESIA: MAC SURGEON: Wm Pabon M.D. SPECIMENS: Antrum, distal esophagus ENDOSCOPIC PROCEDURE: The patient was on the endoscopy table in the left decubitus position. The Olympus gastroscope was inserted into the oropharynx and passed under direct visualization to the region of the third portion of the duodenum. From that point the scope was slowly withdrawn inspecting all surfaces carefully. There were no neoplastic inflammatory or polypoid lesions throughout the duodenum. The pylorus was widely patent. The stomach was carefully inspected. There was mild gastritis present. A biopsy of the antrum took place to rule out H. pylori. Retroflexion revealed a small to moderate- sized hiatal hernia. The GE junction was present 2.5 cm above the diaphragmatic hiatus. At the GE junction there was circumferential inflammatory changes present. No stricture was seen. Length of inflammatory changes less than 1 cm. Biopsies were taken. The remainder the esophagus appeared normal. The patient was kept on the endoscopy table in the left decubitus position. The Olympus colonoscope was inserted into the anus and passed under direct visualization to the base of the cecum. The appendiceal orifice was visualized. From that point the scope was slowly withdrawn inspecting all surfaces carefully. There were no neoplastic inflammatory or polypoid lesions throughout the cecum, ascending, transverse, descending, sigmoid and rectum. There was mild scattered diverticulosis noted. Digital rectal examination was normal. The patient was taken to the recovery room in stable condition per anesthesia guidelines. RECOMMENDATIONS: Await biopsy results. Begin daily antiacid therapy given the patient's intermittent episodes of dysphagia. Repeat upper and lower endoscopy 7 years.
[2024-02-11 09:14] VITALS: RESP 16
[2024-02-11 09:30] VITALS: BP 117/73; PULSE 61
== END 2024-02-11 09:54 | disposition home or self-care (01) ==
LOC: ORWHC2ENDO 07:31
PROVIDERS: ATTEND Surgery
DX: Z12.11 Encounter for screening for malignant neoplasm of colon (principal); K29.50 Unspecified chronic gastritis without bleeding; K21.00 Gastro-esophageal reflux disease with esophagitis, without bleeding; K44.9 Diaphragmatic hernia without obstruction or gangrene; K57.30 Diverticulosis of large intestine without perforation or abscess without bleeding; G47.33 Obstructive sleep apnea (adult) (pediatric); Z86.0100 Personal history of colon polyps, unspecified; Z87.442 Personal history of urinary calculi; Z79.1 Long term (current) use of non-steroidal anti-inflammatories (NSAID); Z79.899 Other long term (current) drug therapy
CPT/HCPCS: 43239; 45378; 88305